=== PATIENT | female | born 1985 | race Caucasian/White ===

== ENCOUNTER 2017-10-12 11:37 | Emergency (ER) | payer OTHER ==
[~2017-10-12] VITALS: Ht 172.7 cm; Wt 103.0 kg
[2017-10-12 11:57] VITALS: Ht 172.7 cm; Wt 103.0 kg
[2017-10-12 14:46] VITALS: BP 115/60
== END 2017-10-12 14:46 | disposition home or self-care (01) ==
LOC: ED 11:37
DX: T78.40XA Allergy, unspecified, initial encounter (principal); X58.XXXA Exposure to other specified factors, initial encounter; J45.909 Unspecified asthma, uncomplicated; Z88.1 Allergy status to other antibiotic agents
CPT/HCPCS: J1200; J2930